=== PATIENT | male | born 1970 | race Hispanic/Latino ===

== ENCOUNTER 2019-10-14 16:31 | Emergency (ER) | payer SELFPAY ==
[2019-10-14] MEDS ORDERED: TETANUS/DIPHTHERIA TOXOID [ADULT] 0.5 ML VIAL IM ONE (16:48)
[2019-10-14] MEDS ORDERED: LIDOCAINE HCL 1% 20 ML VIAL ONE (16:48)
[2019-10-14] MEDS ORDERED: ACETAMINOPHEN EXTRA STRENGTH 500 MG TABLET ONE (16:48)
== END 2019-10-14 18:17 | disposition home or self-care (01) ==
LOC: EDH 16:31
DX: S51.812A Laceration without foreign body of left forearm, initial encounter (principal); W01.0XXA Fall on same level from slipping, tripping and stumbling without subsequent striking against object, initial encounter; Y93.89 Activity, other specified; Y92.89 Other specified places as the place of occurrence of the external cause; Y99.8 Other external cause status
CPT/HCPCS: 12002; 73090; 90471; 90714

== ENCOUNTER 2024-10-20 21:09 | Emergency (ER) | payer BC ==
[~2024-10-20] VITALS: Ht 162.6 cm; Wt 97.5 kg
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
[2024-10-20] MEDS ORDERED: ibuPROFEN 800 MG TAB PO ONE (21:30)
[2024-10-20] MEDS ORDERED: teTANUS/diphthERIA TOXOID [ADULT] 0.5 ML VIAL IM ONE (21:30)
[2024-10-20 21:38] VITALS: BP 149/97; PULSE 83; RESP 18; TEMP 98
--- NOTE | 2024-10-20 22:14 | HMCIMG ---
CT MAXILLOFACIAL W/O CONTRAST HISTORY: Left lower orbital ecchymosis COMPARISON: None TECHNIQUE: Multiple sequential high-resolution axial images of the paranasal sinuses were obtained. Postprocessing sagittal and coronal reconstruction images were also obtained. Patient was not given contrast through intravenous route. FINDINGS: Left periorbital soft tissue swelling is seen. Nasal septum is grossly midline. There is no evidence of mucoperiosteal thickening involving the paranasal sinuses. The infundibula are patent bilaterally. No acute displaced fracture is seen. There is no evidence of air-fluid level in the paranasal sinuses. Parapharyngeal fat planes are preserved bilaterally. IMPRESSION: 1. No acute displaced fracture is seen. Left periorbital soft tissue swelling. CT was performed with one or more following dose reduction techniques: automated exposure control, adjustment of the mA and kv according to patient's size, or use of a iterative reconstruction technique.
== END 2024-10-21 01:50 | disposition left against medical advice (07) ==
LOC: EDH 21:09
DX: S05.12XA Contusion of eyeball and orbital tissues, left eye, initial encounter (principal); Y04.0XXA Assault by unarmed brawl or fight, initial encounter; Y93.89 Activity, other specified; Y92.89 Other specified places as the place of occurrence of the external cause; Y99.8 Other external cause status
CPT/HCPCS: 70486; 99284